=== PATIENT | female | born 1985 | race Caucasian/White ===

== ENCOUNTER 2018-07-10 19:12 | Emergency (ER) | payer BC ==
[2018-07-10 20:46] LABS: Absolute Lymphocytes (CBC) 1.6 K/uL (0.7-4.9); Absolute Monocytes 0.4 K/uL (0.1-1.3); Absolute Neutrophil 4.1 K/uL (1.8-8.0); Basophils % 0.3 % (0-1.3); Eosinophils % 1.5 % (0-4.4); Hematocrit 40.1 % (36.0-45.0); Lymphocytes % 25.4 % (15.3-44.8); MCH 32.8 pg (27.0-35.0); MCV 94.6 fL (80-100); MPV 10.1 fL (7.6-11.3); Monocytes % 6.2 % (3.3-12.3); RBC Red Blood Cell Count 4.24 M/uL (3.86-4.86)
[2018-07-10 20:53] LABS: Protime INR 1.02
[2018-07-10 21:13] LABS: ALT/SGPT 24 U/L (12-78); AST/SGOT 19 U/L (15-37); Alkaline Phosphatase 105 U/L (45-117); BUN Blood Urea Nitrogen 16 mg/dL (7-18); Bicarbonate 26 mmol/L (21-32); Bilirubin Direct 0.1 mg/dL (0-0.2); Bilirubin Total 0.4 mg/dL (0.2-1.0); Glucose Level 94 mg/dL (74-106); Magnesium 2.2 mg/dL (1.8-2.4); NT PRO-BNP 23 pg/mL (<125); Potassium 3.6 mmol/L (3.5-5.1); Protein, Total 7.2 g/dL (6.4-8.2); Sodium Level 142 mmol/L (136-145); Troponin (Emerg Dept Use Only) < 0.02 ng/mL (0.0-0.045)
--- NOTE | 2018-07-10 22:06 | ER ---
Nurse's Notes [facility] Name: Kandice Hassan Age: 33 yrs Sex: Female : 1985 Arrival Date: 07/10/2018 Time: 19:14 Bed 8 Private MD: None, None; James Pryor Diagnosis: Bronchitis, not specified as acute or chronic Presentation: 07/10 19:19 Presenting complaint: Patient states: Chest pressure x 2 weeks, SOB x 3-4 days. Pain hb does not radiate. Denies cough/fever. Transition of care: patient was not received from another setting of care. Onset of symptoms is unknown. Risk Assessment: Do you want to hurt yourself or someone else? Patient reports no desire to harm self or others. Care prior to arrival: None. 19:19 Method Of Arrival: Ambulatory hb 19:19 Acuity: ASHLY 3 hb 20:47 Initial Sepsis Screen: Does the patient meet any 2 criteria? No. Patient's initial ao sepsis screen is negative. Does the patient have a suspected source of infection? No. Patient's initial sepsis screen is negative. 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 - Social history:: Smoking status: Patient/guardian denies using tobacco, Patient/guardian denies using alcohol, street drugs, The patient lives with family. - Ebola Screening: : No symptoms or risks identified at this time. - Family history:: not pertinent. Screenin:41 Abuse screen: Denies threats or abuse. Nutritional screening: No deficits noted. ao Tuberculosis screening: No symptoms or risk factors identified. Fall Risk None identified. Assessment: 20:39 General: Appears in no apparent distress. comfortable, Behavior is calm, cooperative, ao appropriate for age. Pain: Complains of pain in chest Pain does not radiate. Pain currently is 6 out of 10 on a pain scale. Quality of pain is described as Pain began About two weeks. Neuro: Level of Consciousness is awake, alert, obeys commands, Oriented to person, place, time, situation, Appropriate for age Moves all extremities. Full function Speech is normal, Facial symmetry appears normal. Cardiovascular: Heart tones S1 S2 Capillary refill < 3 seconds Patient's skin is warm and dry. Respiratory: Airway is patent Respiratory effort is even, unlabored, Respiratory pattern is regular, symmetrical. GI: Abdomen is non-distended. : No signs and/or symptoms were reported regarding the genitourinary system. EENT: No signs and/or symptoms were reported regarding the EENT system. Derm: Skin is intact, Skin is pink, warm \T\ dry. normal, Skin temperature is warm. Musculoskeletal: No signs and/or symptoms reported regarding the musculoskeletal system. Circulation, motion, and sensation intact. Range of motion: intact in all extremities. 21:39 Reassessment: Patient appears in no apparent distress at this time. Patient and/or ao family updated on plan of care and expected duration. Pain level reassessed. Patient is alert, oriented x 3, equal unlabored respirations, skin warm/dry/pink. Patient under no distress at this time. Vital Signs: 19:21 BP 157 / 104; Pulse 99; Resp 16; Temp 98.4; Pulse Ox 100% on R/A; Pain 5/10; hb 20:52 BP 118 / 87; Pulse 71; Resp 18; Pulse Ox 100% ; Pain 0/10; ao 21:39 BP 157 / 9; Pulse 63; Resp 16; Pulse Ox 100% ; ao ED Course: 19:14 Patient arrived in ED. sb2 19:14 None, None is Private Physician. sb2 19:14 James Pryor MD is Private Physician. sb2 19:21 Triage completed. hb 19:21 Arm band placed on right wrist. hb 19:22 EKG completed in triage. Results shown to MD. hb 20:17 Yaquelin Rosas MD is Attending Physician. ma2 20:25 Ryan Kong RN is Primary Nurse. ao 20:39 Inserted saline lock: 20 gauge in right antecubital area, using aseptic technique. ao Blood collected. 20:46 Patient has correct armband on for positive identification. Bed in low position. Call ao light in reach. catholic priest on. 20:46 Patient maintains SpO2 saturation greater than 95% on room air. ao 20:52 XRAY Chest (1 view) In Process Unspecified. EDMS 22:15 No provider procedures requiring assistance completed. IV discontinued, No lp1 redness/swelling at site. Pressure dressing applied. Administered Medications: 22:02 CANCELLED (Patient Refused): Paden (7.5 mg-325 mg) 2 tabs PO once ma2 Outcome: 22:05 Discharge ordered by . ma2 22:16 Discharged to home ambulatory, with significant other. lp1 22:16 Condition: good 22:16 Discharge instructions given to patient, Instructed on discharge instructions, follow up and referral plans. medication usage, Demonstrated understanding of instructions, follow-up care, medications, Prescriptions given X 1. 22:16 Patient left the ED. lp1 Signatures: Dispatcher [employer] EDMS Layne Hassan RN RN lp1 Ryan Kong RN RN Shabnam Gonzales RN Yaquelin Simms MD MD ma2 Marie Meneses sb2 Corrections: (The following items were deleted from the chart) 20:52 20:39 Pain: Complains of pain in chest Pain does not radiate. Pain currently is 6 out ao of 10 on a pain scale. Quality of pain is described as Pain began 2-3 days ago. ao
--- NOTE | 2018-07-10 22:06 | EDPHYS ---
Physician Documentation [facility] Name: Kandice Hassan Age: 33 yrs Sex: Female : 1985 Arrival Date: 07/10/2018 Time: 19:14 Bed 8 Private MD: None, None; James Pryor ED Physician Yaquelin Rosas HPI: 07/10 20:27 This 33 yrs old Female presents to ER via Ambulatory with complaints of Chest ma2 Pain, Shortness Of Breath. 20:27 The patient or guardian reports chest pain that is located primarily in the substernal ma2 area, anterior chest wall. The pain does not radiate. Associated signs and symptoms: Pertinent negatives: cough, diaphoresis, lower extremity pain, lightheadedness. Associated signs and symptoms: Pertinent positives: shortness of breath. The chest pain is described as a heaviness. Duration: The patient or guardian reports multiple episodes, that wax and wane. Severity of pain: At its worst the pain was mild in the emergency department the pain is unchanged. The patient has not experienced similar symptoms in the past. 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 - Social history:: Smoking status: Patient/guardian denies using tobacco, Patient/guardian denies using alcohol, street drugs, The patient lives with family. - Ebola Screening: : No symptoms or risks identified at this time. - Family history:: not pertinent. ROS: 20:27 Cardiovascular: Positive for chest pain. ma2 20:27 Cardiovascular: Negative for edema, orthopnea, palpitations. 20:27 Respiratory: Positive for dyspnea on exertion, Negative for cough, shortness of breath, sputum production. 20:27 All other systems are negative. 22:06 Cardiovascular: Negative for chest pain, palpitations, and edema. ma2 Exam: 20:27 Constitutional: This is a well developed, well nourished patient who is awake, alert, ma2 and in no acute distress. Chest/axilla: Normal chest wall appearance and motion. Nontender with no deformity. No lesions are appreciated. Cardiovascular: Regular rate and rhythm with a normal S1 and S2. No gallops, murmurs, or rubs. Normal PMI, no JVD. No pulse deficits. Respiratory: Lungs have equal breath sounds bilaterally, clear to auscultation and percussion. No rales, rhonchi or wheezes noted. No increased work of breathing, no retractions or nasal flaring. Abdomen/GI: Soft, non-tender, with normal bowel sounds. No distension or tympany. No guarding or rebound. No evidence of tenderness throughout. MS/ Extremity: Pulses equal, no cyanosis. Neurovascular intact. Full, normal range of motion. Neuro: Awake and alert, GCS 15, oriented to person, place, time, and situation. Cranial nerves II-XII grossly intact. Motor strength 5/5 in all extremities. Sensory grossly intact. Cerebellar exam normal. Normal gait. Vital Signs: 19:21 BP 157 / 104; Pulse 99; Resp 16; Temp 98.4; Pulse Ox 100% on R/A; Pain 5/10; hb 20:52 BP 118 / 87; Pulse 71; Resp 18; Pulse Ox 100% ; Pain 0/10; ao 21:39 BP 157 / 9; Pulse 63; Resp 16; Pulse Ox 100% ; ao MDM: 20:19 Patient medically screened. ma2 20:27 Differential diagnosis: acute myocardial infarction, acute pericarditis, anxiety, ma2 coronary artery disease congestive heart failure gastroesophageal reflux disease (GERD). 22:05 Data reviewed: vital signs, nurses notes, lab test result(s), radiologic studies. ma2 Counseling: I had a detailed discussion with the patient and/or guardian regarding: the historical points, exam findings, and any diagnostic results supporting the discharge/admit diagnosis, the presence of at least one elevated blood pressure reading (>120/80) during this emergency department visit, lab results, the need for outpatient follow up. 07/10 20:27 Order name: Basic Metabolic Panel; Complete Time: 21:40 ma2 07/10 20:27 Order name: CBC with Diff; Complete Time: 21:40 ma2 07/10 20:27 Order name: LFT's; Complete Time: 21:40 ma2 07/10 20:27 Order name: Magnesium; Complete Time: 21:40 ma2 07/10 20:27 Order name: NT PRO-BNP; Complete Time: 21:40 ma2 07/10 20:27 Order name: PT-INR; Complete Time: 21:40 ma2 07/10 20:27 Order name: Troponin (emerg Dept Use Only); Complete Time: 21:40 ma2 07/10 20:27 Order name: XRAY Chest (1 view) ma2 07/10 20:27 Order name: EKG; Complete Time: 20:27 ma2 07/10 20:27 Order name: Cardiac monitoring; Complete Time: 20:38 ma2 07/10 20:27 Order name: EKG - Nurse/Tech; Complete Time: 20:33 ma2 07/10 20:27 Order name: IV Saline Lock; Complete Time: 20:39 ma2 07/10 20:27 Order name: D-Dimer; Complete Time: 21:40 ma2 07/10 20:27 Order name: Labs collected and sent; Complete Time: 20:39 ma2 07/10 20:27 Order name: O2 Per Protocol; Complete Time: 20:39 ma2 07/10 20:27 Order name: O2 Sat Monitoring; Complete Time: 20:39 ma2 Administered Medications: 22:02 CANCELLED (Patient Refused): [place] (7.5 mg-325 mg) 2 tabs PO once ma2 Disposition: 07/10/18 22:05 Discharged to Home. Impression: Bronchitis, not specified as acute or chronic. - Condition is Stable. - Discharge Instructions: Acute Bronchitis, Adult. - Prescriptions for Zithromax Z- Amrit 250 mg Oral Tablet - take 1 tablet by ORAL route as directed for 5 days Day 1 - take two (2) tablets one time. Day 2, 3, 4 , 5 take one (1) tablet once daily.; 6 tablet. - Medication Reconciliation Form, Thank You Letter, Antibiotic Education, Prescription Opioid Use form. - Follow up: Private Physician; When: Tomorrow; Reason: Continuance of care. Signatures: [facility] Layne [facility] RN RN lp1 Shabnam Walker RN RN Yaquelin Rosas MD MD ma2 Corrections: (The following items were deleted from the chart) 22:02 22:02 [place] (7.5 mg-325 mg) 2 tabs PO once ordered. ma2 ma2 22:16 22:05 07/10/2018 22:05 Discharged to Home. Impression: Bronchitis, not specified as lp1 acute or chronic. Condition is Stable. Forms are Medication Reconciliation Form, Thank You Letter, Antibiotic Education, Prescription Opioid Use. Follow up: Private Physician; When: Tomorrow; Reason: Continuance of care. ma2
--- NOTE | 2018-07-10 22:29 | RAD REPORT ---
EXAM DESCRIPTION: RAD - Chest Single View - 07/10/2018 8:53 pm CLINICAL HISTORY: Cough and congestion COMPARISON: None. TECHNIQUE: AP portable chest image was obtained 2049 hours . FINDINGS: Lungs are clear. Heart and vasculature are normal. No measurable pleural effusion and no p neumothorax. No gross bony abnormality seen. No acute aortic findings suspected. IMPRESSION: No acute cardiopulmonary process.
[2018-07-11 00:38] VITALS: TEMP 98.4; O2SAT 100
[2018-07-11 00:40] VITALS: BP 157/9
--- NOTE | 2018-07-11 06:21 | EKG ---
Test Date: 2018-07-10 Test Time: 19:22:52 Burr Grinder: RADHA MEASUREMENT RESULTS: Intervals: Rate: 84 HI: 146 QRSD: 78 QT: 372 QTc: 439 [place]: P: 61 HI: 146 QRS: -11 T: 27 INTERPRETIVE STATEMENTS: Normal sinus rhythm Septal infarct, age undetermined Abnormal ECG No previous ECG available for comparison Electronically Signed On 07-11-18 06:20:32 CDT by Tommy Thakkar
== END 2018-07-10 22:16 | disposition home or self-care (01) ==
LOC: ER 19:12
DX: J40 Bronchitis, not specified as acute or chronic (principal)
CPT/HCPCS: 36415; 71045; 80048; 80076; 83735; 83880; 84484; 85025; 85379; 85610; 93005; 99285